=== PATIENT | female | born 1980 | race African-American/Black ===

== ENCOUNTER → 2016-10-31 | Day surgery (SDC) | payer OTHER ==
[~2016-10-31] MED LIST: IBUPROFEN800 MG PO
--- NOTE | ~2016-10-31 | OR ---
Unit #: [id number] #: [id number] Patient: MIRELA GALLO [id number] [address] [place], [place] [address] [id number] MR#: [id number] NAME: MIRELA GALLO ROOM: Date of Procedure: 10/31/2016 Admission Date: 10/31/2016 Surgeon: Eddie Doherty Jr., M.D. : 1980 Attending Physician: Eddie Doherty Jr., M.D. Primary Care Physician: Mae Palmer M.D. 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 It is felt this could be related the hidradenitis or merely group of cyst and it was felt this should be excised under local anesthesia as an outpatient. She is brought in this time for this procedure at her request. PREOPERATIVE DIAGNOSES Chronic infected cyst of the right axilla, rule out hidradenitis. POSTOPERATIVE DIAGNOSES Chronic infected cyst of the right axilla, rule out hidradenitis, noting approximately 6 to 7 cm cystic area. ANESTHESIA 1% Xylocaine with epinephrine locally. PROCEDURE PERFORMED Excision of chronic cystic tissue of the right axilla. DESCRIPTION OF PROCEDURE The patient was positioned in supine position with her arm raised on the right and prepped and draped in routine fashion for removal of the cystic area, marked in the holding room in the center portion of the axilla. The area was locally blocked with 1% Xylocaine with epinephrine. An elliptical incision made around the area with being totally excised from the surrounding tissue and down to the fascia of the muscle with a #10 blade scalpel. After it was completely removed, it was sent to pathology. Hemostasis was achieved with Bovie cautery. The deeper tissue approximated with interrupted 3-0 Vicryl sutures. Skin edges approximated with stainless-steel skin clips and skin stapling device. Ointment and sterile compressive dressing were applied externally. Estimated blood loss less than 50 mL. The patient received no fluids during the procedure. Sponges and instrument counts were correct x3. No drains used. No complications. The patient was taken to the recovery room with stable vital signs in satisfactory condition. Dictated by... Eddie Doherty Jr., M.D. Unit #: [id number] #: [id number] Patient: MIRELA GALLO JACLYN/samuel TD: 10/31/2016 12:53 JOB #: [id number] CC: Mae Palmer M.D. OPERATIVE REPORT Page 1 of 1 X Eddie Doherty MD X PROCEDURE OPERATIVE NOTE
== END | disposition home or self-care (01) ==
LOC: CSUR 09:07
DX: L73.2 Hidradenitis suppurativa (principal); L72.0 Epidermal cyst; E66.9 Obesity, unspecified; Z80.3 Family history of malignant neoplasm of breast; Z87.891 Personal history of nicotine dependence; Z68.30 Body mass index [BMI] 30.0-30.9, adult; Z79.1 Long term (current) use of non-steroidal anti-inflammatories (NSAID); Z98.51 Tubal ligation status
CPT/HCPCS: 84703; 88304